=== PATIENT | female | born 1930 | race Caucasian/White ===

== ENCOUNTER 2018-07-08 14:00 | Outpatient (RCR) ==
--- NOTE | 2018-06-24 16:52 | RS.OPPTEV2 ---
Date of Note: 06/24/18 Visit #: 1 Date of Evaluation: 06/24/18 Payer Source: MEDICARE Treatment Diagnosis: Gait difficulty, recent fall, knee pain History of Condition/Mechanism of Injury:: Patient states she fell a few weeks ago due to the right knee buckling. States she has had no other falls. Reports bilateral knees have severe Osteoarthritis. Prior Level of Function.....Patient was independent with: ADL's, Self Care, Ambulation/Mobility, Community Integration/Access (assistance required due to vision impairment) Functional Limitations: Ambulation, Community Access/Integration Current Subjective/complaints:: Patient reports she has only 30% of normal vision. States she has not used an assistive device up until now. She lives alone in an apartment. She has one small step from her porch going into her home. States a family member bought her a cane, but she has not tried to walk with it yet. She states her knees do not hurt. States the bruise she had on the right knee from her fall is almost gone. States she does not want to fall again. She is unable to drive and has someone that drives for her. She denies numbness, tingling, or burning in the LE's. Medical History Medical History: Hypertension, Arthritis Smoking Status: Former smoker Hx Home Medications: Did not bring list of medications. Patient's Goals: Her goal is to avoid any more falls. Functional Outcome Measure LE Functional Scale: 31 (31/80=61.25% impairment) Tinetti: 17 (17/28=39.3% impairment) - G Codes & Severity Modifier G Codes & Modifier: Mobility current CK. Mobility goal CI Source of G Code score: Based on presentation in department Observation - Observation Inspection: Demonstrates swelling of bilateral LE's with majority of swelling localized distally, just above the ankles. Posture: Forward Head, Rounded Shoulders, Decreased Lumbar Lordosis Gait - Gait Pattern Gait Comments: Patient ambulates into department without use of assistive device. She demonstrates minimal foot clearance bilaterally and a narrow base of support. She also exhibits decreased stance on the right LE. She is cautious due to impaired vision. Performs sit to stand independently. General Range of Motion: Bilateral hip, knee, and ankle AROM is WFL's. Patient demonstrates crepitus in both knees with ROM. Muscle Strength: Bilateral knees 4/5, ankles 4+/5. Right hip joint 4 to 4+/5 and Left hip 4+/5. Trunk strength 4/5. Palpation Comments:: Ms. Juarez denies pain with palpation throughout the right knee joint. Sensation - Sensation Right Lower Extremity: Intact/Normal Left Lower Extremity: Intact/Normal Balance - Sitting Balance Static Sitting Balance: Good (-) Dynamic Sitting Balance: Good (-) - Standing Balance Static Standing Balance: Fair (+) Dynamic Standing Balance: Fair (+) Coordination - Tests Bilateral Heel to Gan: Mild Deviation Toe Tapping: Normal/Intact Interventions - Exercise/Activities/Manual Therapy Exercises/Activities: No exercises given today. Instructed patient in proper use of NBQC and adjusted cane to appropriate height for patient. Patient assisted with ambulation in department- tried ambulating with cane on right side and on left side. Also ambulated with straight cane in the department. Patient requires CGA of one to steady and for instruction with NBQC and straight cane. Manual Therapy: NA - Charges Timed Code Treatment Minutes: 0 Total Treatment Time: 50 mins Procedures billed for this date of service:: EVAL medium EVALUATION COMPLEXITY LEVEL EVALUATION COMPLEXITY LEVEL: HISTORY: Medium (Recent fall, vision impairment, severe OA of both knees), EXAM OF BODY SYSTEMS: Medium (balance, strength, sensation, coordination, ROM), CLINICAL PRESENTATION: Medium, CLINICAL DECISION MAKING: Medium Assessment Assessment: Patient presents to therapy with a diagnosis of knee pain, gait difficulty, and recent fall. She reports right knee pain has now resolved. She demonstrates weakness of bilateral Quads and HS. She presents to be at a high risk for falls per Tinetti Assessment. She demonstrates potential to benefit from strenthening exercises to the LE's and education/training to decrease gait deviations and reduce her risk for falls. Patient Education: Education of diagnosis, Home Safety, Education of Plan of Care Rehab Potential: Good Short Term Goals Goal #1: Bilateral quad strength improved to 4+/5. Goal to be met by: 07/08/18 Goal #2: Pt independent and compliant in HEP. Goal to be met by: 07/08/18 Goal #3: Pt to display proper use of cane with ambulation in department. 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 Goal to be met by: 08/03/18 Goal #2: Score on Tinetti Assessment improved to 24/28 showing Low risk for falls. Goal to be met by: 08/03/18 Goal #3: Pt to amb. independently w/ appropriate assist. device, community distances Goal to be met by: 08/03/18 Plan - Treatment to be Provided Procedures: Therapeutic Exercises, Therapeutic Activity, Gait Training, Vestibular Rehab, Patient Education Modalities: No Modalities - Treatment Plan Frequency: 2 X week Duration: 4 weeks ORDER # VISITS AND/OR THROUGH DATE: 08/03/18 - Treatment Code (1) Gait abnormality Code(s): R26.9 - UNSPECIFIED ABNORMALITIES OF GAIT AND MOBILITY Comments: R26.9 (2) History of recent fall Code(s): Z91.81 - HISTORY OF FALLING Comments: Z91.81 (3) Osteoarthritis Code(s): M19.90 - UNSPECIFIED OSTEOARTHRITIS, UNSPECIFIED SITE Qualifiers: Osteoarthritis location: knee Osteoarthritis type: primary Laterality: bilateral Qualified Code(s): M17.0 - Bilateral primary osteoarthritis of knee (4) Profound vision impairment Code(s): H54.7 - UNSPECIFIED VISUAL LOSS Comments: H54.7
--- NOTE | 2018-06-28 14:30 | RS.OPPTDN ---
Subjective Date of Note: 06/28/18 Visit #: 2 Date of Evaluation: 06/24/18 Payer Source: MEDICARE Treatment Diagnosis: Gait difficulty, recent fall, knee pain Current Subjective/complaints:: Patient reports no recent falls. States she feels the exercises may help her with strength and her walker. Patient states she has used SBQC on the left side over the weekend as instructed. States this continues to be uncomfortable and would like to move to the right side. Following adjustment patient reports she is feeling like she has better balance. Pain Assessment - Pain Description Pain Location: Left knee Other Comments regarding Pain:: States right knee was the one that buckled, but the left is the painful joint. Interventions - Exercise/Activities/Manual Therapy Exercises/Activities: Isometric hip add, isometric ankle inversion. Started SAQ with weight, but to difficult. Assisted SAQ, SLR, Hip abd. 3# for alt hip flexion. Ham sets, quad sets, and ankle pumps. Isometric hip flexion and isometric trunk rotation in neutral. In standing, toe-ups, marching, alt hip abd, and partial mini-squats. Adjusted NBQC to be used on the right side at patient request. Walked with patient to waiting room and v.c. given for technique and safety. Total minutes of Exercise: 40mins Manual Therapy: NA HOME EXERCISE PROGRAM: QS, AP, isometric hip add, isometric ankle inversion. Standing at kitchen counter for toe-ups, mini-squats, marching, and alt hip abd. - Charges Timed Code Treatment Minutes: 40mins Total Treatment Time: 43mins Procedures billed for this date of service:: EX2 Assessment: Patient motivated to work on HEP to improve strength and ambulation. Patient Education: Body/Joint mechanics, Home Exercise Program, Home Safety, Activity Modification Comments: Patient education of joint mechancs, safety and HEP. Patient and caregiver instructed in HEP and given copies. Short Term Goals Goal #1: Bilateral quad strength improved to 4+/5. Goal to be met by: 07/08/18 Goal #2: Pt independent and compliant in HEP. Goal to be met by: 07/08/18 Progress towards Goal:: Progressing Goal #3: Pt to display proper use of cane with ambulation in department. Goal to be met by: 07/08/18 Progress towards Goal:: Progressing Intermediate Goals Goal #1: Pt knows HEP and to continue ex's to maintain functional level at D/C. Goal to be met by: 08/03/18 Progress towards goal: Progressing Goal #2: Score on Tinetti Assessment improved to 24/28 showing Low risk for falls. Goal to be met by: 08/03/18 Goal #3: Pt to amb. independently w/ appropriate assist. device, community distances Goal to be met by: 08/03/18 Progress towards goal: Progressing Plan PLAN OF CARE EXPIRES ON:: 08/03/18 ORDER # VISITS AND/OR THROUGH DATE: 08/03/18 PLAN: Progress with strengthening exercise to promote safe and independent ambulation and functional mobility.
--- NOTE | 2018-07-01 13:08 | RS.CXNS ---
Date of scheduled appointment: 07/01/18 Type: Cancel (Family member called to cancel appointment for patient. No reason given.)
--- NOTE | 2018-07-05 14:52 | RS.OPPTDN ---
Subjective Date of Note: 07/05/18 Visit #: 3 Date of Evaluation: 06/24/18 Payer Source: MEDICARE Treatment Diagnosis: Gait difficulty, recent fall, knee pain Current Subjective/complaints:: Patient reports she is working on HEP and will contindue to do so. Reports she still prefers the quad cane on the right side, and would like to fing a "hurri-cane" (cane with a small base). Reports missing last week due to fall. States she did not seek medical assessment and has no residual symptoms other than soreness left quad. States both falls have been when getting into car, agrees to back up to sit before putting LE's into car as instructed today. Pain Assessment - Pain Description Pain Location: left quad Pain Description: soreness Interventions - Exercise/Activities/Manual Therapy Exercises/Activities: Isometric hip add, isometric ankle inversion. SAQ no weight today. Assisted SLR and Hip abd. Alt hip flexion no weights today. Ham sets, quad sets, and ankle pumps. Isometric hip flexion, isometric ankle inversion, and isometric trunk rotation in neutral. Red theraband for ankle df and ham curls. In standing, toe-ups, marching, alt hip abd, and partial mini- squats. Walked with straight cane, but patient reports she is not comfortable. Assisted patient in hallway and to car with SBQC on the right side. Instructed in safety when getting into car, back up to sit. Frequent vc for safety with standing ex, walking with SBQC, and transfers to car. Patient instructed to slow speed and widen stance to improve balance with ambulation. Total minutes of Exercise: EX 25mins, THER ACT 18mins Manual Therapy: NA HOME EXERCISE PROGRAM: QS, AP, isometric hip add, isometric ankle inversion. Standing at kitchen counter for toe-ups, mini-squats, marching, and alt hip abd. - Charges Timed Code Treatment Minutes: 43mins Total Treatment Time: 43mins Procedures billed for this date of service:: EX2, THER ACT Assessment: Patient responding well with reports of feeling stronger and consistently working on HEP. Will need to continue to work on safety with transfers and ambulation. Patient Education: Education of diagnosis, Body/Joint mechanics, Home Exercise Program, Home Safety, Activity Modification Patient demonstrates compliance with HEP?: Yes Short Term Goals Goal #1: Bilateral quad strength improved to 4+/5. Goal to be met by: 07/08/18 Progress towards Goal:: Progressing Goal #2: Pt independent and compliant in HEP. Goal to be met by: 07/08/18 Progress towards Goal:: Partially Met Goal #3: Pt to display proper use of cane with ambulation in department. Goal to be met by: 07/08/18 Progress towards Goal:: Partially Met Skilled Nursing Goals Goal #1: Pt knows HEP and to continue ex's to maintain functional level at D/C. Goal to be met by: 08/03/18 Progress towards goal: Progressing Goal #2: Score on Tinetti Assessment improved to 24/28 showing Low risk for falls. Goal to be met by: 08/03/18 Goal #3: Pt to amb. independently w/ appropriate assist. device, community distances Goal to be met by: 08/03/18 Progress towards goal: Progressing Plan PLAN OF CARE EXPIRES ON:: 08/03/18 ORDER # VISITS AND/OR THROUGH DATE: 08/03/18 PLAN: Progress exercise and education to increase patients safety and independence with functional activities.
--- NOTE | 2018-07-08 16:21 | RS.OPPTDN ---
Subjective Date of Note: 07/08/18 Visit #: 4 Date of Evaluation: 06/24/18 Payer Source: MEDICARE Treatment Diagnosis: Gait difficulty, recent fall, knee pain Current Subjective/complaints:: Patient reports she is doing much better with getting in and out of car since instruction in safe technique last session. States she feels she can continue HEP at this time. Pain Assessment - Pain Description Pain Location: left knee Pain Description: Tightness, Aching Current Pain Intensity: mild to mod Interventions - Exercise/Activities/Manual Therapy Exercises/Activities: Isometric hip add, isometric ankle inversion. SAQ with 3# today. Assisted SLR and Hip abd. Alt hip flexion with 3#. Ham sets and quad sets, reviewed proper muscle contraction with each. Isometric hip flexion, isometric ankle inversion, and isometric trunk rotation in neutral. Isometric hip abd in hook-lying. Red theraband for ankle df. Instructed in pelvic tilts. In sitting, red tband for ham curl and isometrics for hip abd. Discussion and demonstration of scooting to edge of chair and forward weight shift with sit to stand. In standing, toe-ups, marching, alt hip abd, and partial mini-squats. Patient education for safety with walking with SBQC, turns, and backing up to chair and car. Assisted patient in hallway and to car with SBQC on the right side. Continued patient education on amb in community, including speed, stance, and step length. Frequent vc for safety. Total minutes of Exercise: EX 28mins, GT 14mins Manual Therapy: NA HOME EXERCISE PROGRAM: QS, AP, isometric hip add, isometric ankle inversion. Standing at kitchen counter for toe-ups, mini-squats, marching, and alt hip abd. - Objective Findings Observations,measurements,etc.: Patients Tinetti score has improved to 19/28 or 32.2% impairment (was 17/28 or 39.3% on Eval). - Charges Timed Code Treatment Minutes: 42mins Total Treatment Time: 42mins Procedures billed for this date of service:: EX2, GT Assessment: Patient has progressed well and reports she is doing better with walking and getting in and out of car (which is where she has had the last 2 falls). Patient Education: Home Exercise Program, Home Safety, Activity Modification Comments: Reviewed and finalized all patient education and HEP. Patient demonstrates compliance with HEP?: Yes Short Term Goals Goal #1: Bilateral quad strength improved to 4+/5. Goal to be met by: 07/08/18 Progress towards Goal:: Partially Met Goal #2: Pt independent and compliant in HEP. Goal to be met by: 07/08/18 Progress towards Goal:: Met Goal #3: Pt to display proper use of cane with ambulation in department. 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 Goal to be met by: 08/03/18 Progress towards goal: Met Goal #2: Score on Tinetti Assessment improved to 24/28 showing Low risk for falls. Goal to be met by: 08/03/18 Progress towards goal: Progressing Goal #3: Pt to amb. independently w/ appropriate assist. device, community distances Goal to be met by: 08/03/18 Progress towards goal: Partially Met (Patient going short distances in community with SBQC.) Plan PLAN OF CARE EXPIRES ON:: 08/03/18 ORDER # VISITS AND/OR THROUGH DATE: 08/03/18 PLAN: Discharge with HEP.
--- NOTE | 2018-07-12 15:28 | RS.OPPTDC ---
Date of Discharge: 07/08/18 Date of Evaluation: 06/24/18 Number of Visits: 4 Treatment Diagnosis: Gait difficulty, recent fall, knee pain Current Complaints/Gains: Patient states she is doing better. She is ambulating short distances in the community with the SBQC. States she backs up to sit in the car as instructed and has had no falls or difficulty. She feels she is ready to stop and will continue her HEP. Functional Outcome Measure Tinetti: 19 (=32.2% impairment) - G Codes & Severity Modifier G Codes & Modifier: Mobility Goal CI. Mobility D/C CJ Source of G Code score: improved two points on Tinetti Assessment Interventions - Exercise/Activities/Manual Therapy Exercises/Activities: NA Manual Therapy: NA HOME EXERCISE PROGRAM: QS, AP, isometric hip add, isometric ankle inversion. Standing at kitchen counter for toe-ups, mini-squats, marching, and alt hip abd. - Objective Findings Observations,measurements,etc.: Demonstrates good safety awareness with transfers and ambulation with use of SBQC. She presents a steadier gait compared to evaluation. She is independent with HEP. She shows greater ease with sit to stand transfers. - Charges Timed Code Treatment Minutes: NA Total Treatment Time: NA Procedures billed for this date of service:: NA Assessment Assessment: Patient feels she has progressed well and would like to continue her ex's on her own. She met 3 out of 6 goals. Short Term Goals Goal #1: Bilateral quad strength improved to 4+/5. Goal to be met by: 07/08/18 Progress towards Goal:: Partially Met Goal #2: Pt independent and compliant in HEP. Goal to be met by: 07/08/18 Progress towards Goal:: Met Goal #3: Pt to display proper use of cane with ambulation in department. 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 Goal to be met by: 08/03/18 Progress towards goal: Met Goal #2: Score on Tinetti Assessment improved to 24/28 showing Low risk for falls. Goal to be met by: 08/03/18 Progress towards goal: Progressing Goal #3: Pt to amb. independently w/ appropriate assist. device, community distances Goal to be met by: 08/03/18 Progress towards goal: Partially Met (Patient going short distances in community with SBQC.) Plan Reason for Discharge:: Self-Discharge
== END 2018-07-16 23:59 ==
PROVIDERS: ATTEND Family Medicine
DX: R26.9 Unspecified abnormalities of gait and mobility (principal); M25.569 Pain in unspecified knee; M17.0 Bilateral primary osteoarthritis of knee; Z91.81 History of falling; W19.XXXD Unspecified fall, subsequent encounter; H54.7 Unspecified visual loss